=== PATIENT | male | born 1950 | race Caucasian/White ===

== ENCOUNTER 2017-04-03 09:42 | Emergency (ER) | payer MEDICARE, BC ==
[2017-04-03] MEDS ORDERED: TORAdol 30 mg Injection IV ONE (10:08)
[2017-04-03] MEDS ORDERED: MORPHINE SULFATE 4 MG INJ IV ONE (10:08)
--- NOTE | 2017-04-03 10:08 | ERPHSYRPT ---
- History of Present Illness Time Seen by Provider: 04/03/17 10:04 Source: patient, family Exam Limitations: no limitations Patient Subjective Stated Complaint: here for pain with breathing, pt states like a cramping pain. started after doing yard work this week end Triage Nursing Assessment: pt walked in, resp easy, holding left side of chest, states helps to apply pressure,skin w/d chest clear Physician History: The patient is a 67-year-old male with family complaining that he began having left-sided chest pain and spasms Monday evening after mowing the yard on Monday afternoon. The pain prevents her from taking a deep breath. He says this makes him short of breath. He states the pain in his chest is a spasm that comes and goes in rapid succession. He was awake all last night due to the pain. He can only take shallow breaths because of the pain. He denies nausea or vomiting. His past medical history is significant for coronary artery disease. Irregular heartbeat. Hypertension. Anxiety. CABG. Timing/Duration: day(s) (3) Activities at Onset: none Severity of Dyspnea-Max: moderate Severity of Dyspnea-Current: moderate Possible Cause: no prior episodes, allergen exposure Modifying Factors: Improves With: nothing Associated Symptoms: chest pain/discomfort, painful breathing Allergies/Adverse Reactions: No Known Drug Allergies Allergy (Unverified 04/03/17 10:01) Hx Influenza Vaccination/Date Given: No Hx Pneumococcal Vaccination/Date Given: No Immunizations Up to Date: Yes - Review of Systems Constitutional: No Fever, No Chills Eyes: No Symptoms Ears, Nose, & Throat: No Symptoms Respiratory: Dyspnea Cardiac: Chest Pain Abdominal/Gastrointestinal: No Abdominal Pain, No Nausea, No Vomiting, No Diarrhea Genitourinary Symptoms: No Dysuria Musculoskeletal: No Back Pain, No Neck Pain Skin: No Rash Neurological: No Dizziness, No Focal Weakness, No Sensory Changes Psychological: No Symptoms Endocrine: No Symptoms Hematologic/Lymphatic: No Symptoms Immunological/Allergic: No Symptoms All Other Systems: Reviewed and Negative - Past Medical History Pertinent Past Medical History: Yes Cardiac History: Congenital Heart Disease - Past Surgical History Past Surgical History: Yes Cardiac: CABG Other Surgical History: sinus,cataract, skin ca - Social History Smoking Status: Former smoker Exposure to second hand smoke: No Drug Use: none Patient Lives Alone: No - Nursing Vital Signs Nursing Vital Signs: Initial Vital Signs Temperature 98.7 F 04/03/17 09:43 Pulse Rate 78 04/03/17 09:43 Respiratory Rate 28 H 04/03/17 09:43 Blood Pressure 160/105 04/03/17 09:43 O2 Sat by Pulse Oximetry 96 04/03/17 09:43 Pain Scale Pain Intensity 6 - Physical Exam General Appearance: mild distress Eye Exam: PERRL/EOMI Ears, Nose, Throat Exam: hearing grossly normal Neck Exam: normal inspection, supple Respiratory Exam: normal breath sounds, other (shallow breaths), No chest tenderness Cardiovascular/Chest Exam: normal heart sounds, regular rate/rhythm Abdominal/Gastrointestinal Exam: soft, No tenderness, No distention, No mass Rectal Exam: not done Extremity Exam: non-tender, normal range of motion, normal inspection, no calf tenderness, no pedal edema Neurologic Exam: alert, oriented x 3, cooperative, trauma doctor II-XII nml as tested, sensation nml, No motor deficits Skin Exam: normal color, warm, No dry SpO2 Interpretation: normal SpO2: 96 Oxygen Delivery: Room Air - Course EKG Interpreted by Me: RATE, Sinus Rhythm, NORMAL ST-T - Radiology Exams Chest X-ray Interpretation: Infiltrates (new left base infiltrate per Dr Huang) - CT Exams Chest CT Interpretation: Other (tiny nonoccluding PEs in RML and RLL. Lingular and LLL consolidating airspace disease per Dr Kaur.) Ordered Tests: Active Orders 24 hr Category Date Time Status EKG-ER Only STAT Care 04/03/17 10:08 Active IV Insertion STAT Care 04/03/17 10:08 Active CHEST 2 VIEWS (PA AND LAT) Stat Exams 04/03/17 10:08 Completed CHEST WITH CONTRAST [CT] Stat Exams 04/03/17 10:55 Completed CBC W DIFF Stat Lab 04/03/17 10:16 Completed CMP Stat Lab 04/03/17 10:16 Completed D-DIMER QUANTITATION Stat Lab 04/03/17 10:16 Completed NT PRO BNP Stat Lab 04/03/17 10:16 Completed TROPONIN Q3H Lab 04/03/17 10:16 Completed TROPONIN Q3H Lab 04/03/17 13:15 Ordered TROPONIN Q3H Lab 04/03/17 16:15 Ordered TROPONIN Q3H Lab 04/03/17 19:15 Ordered TROPONIN Q3H Lab 04/03/17 22:15 Ordered Medication Summary Generic Name Dose Route Start Last Admin Trade Name Enedina PRN Reason Stop Dose Admin Ceftriaxone Sodium/Dextrose 1 g in 50 mls @ 100 mls/hr 04/03/17 12:20 12:27 Rocephin 1 Gm-D5w 50 Ml Bag IV 04/03/17 12:49 100 mls/hr STAT STA Administration Discontinued Medications Generic Name Dose Route Start Last Admin Trade Name Enedina PRN Reason Stop Dose Admin Diazepam 5 mg 04/03/17 10:10 04/03/17 10:23 Valium 10 Mg/2 Ml Syringe IV 04/03/17 10:11 5 mg STAT ONE Administration Diazepam Confirm 04/03/17 10:20 Valium 10 Mg/2 Ml Syringe Administered 04/03/17 10:21 Dose 10 mg .ROUTE .STK-MED ONE Ceftriaxone Sodium/Dextrose Confirm 04/03/17 12:26 Rocephin 1 Gm-D5w 50 Ml Bag Administered 04/03/17 12:27 Dose 1 g in 50 mls @ ud IV .STK-MED ONE Ketorolac Tromethamine 30 mg 04/03/17 10:08 04/03/17 10:23 Toradol 30 Mg Injection IV 04/03/17 10:09 30 mg STAT ONE Administration Ketorolac Tromethamine Confirm 04/03/17 10:20 Toradol 30 Mg Injection Administered 04/03/17 10:21 Dose 30 mg .ROUTE .STK-MED ONE Morphine Sulfate 4 mg 04/03/17 10:08 04/03/17 10:23 Morphine Sulfate 4 Mg Inj IV 04/03/17 10:09 4 mg STAT ONE Administration Morphine Sulfate Confirm 04/03/17 10:20 Morphine Sulfate 4 Mg Inj Administered 04/03/17 10:21 Dose 4 mg .ROUTE .STK-MED ONE Lab/Rad Data: Laboratory Result Diagrams 04/03/17 10:16 04/03/17 10:16 Laboratory Results 04/03/17 04/03/17 04/03/17 Range/Units 10:16 10:16 10:16 WBC (4.0-10.5) K/mm3 RBC (4.1-5.6) M/mm3 Hgb (12.5-18.0) gm/dl Hct (42-50) % MCV (78-100) fl MCH (26-32) pg MCHC (32-36) g/dl RDW (11.5-14.0) % Plt Count (150-450) K/mm3 MPV (6-9.5) fl Gran % (36.0-66.0) % Lymphocytes % (24.0-44.0) % Monocytes % (0.0-12.0) % Eosinophils % (0.00-5.0) % Basophils % (0.0-0.4) % Basophils # (0-0.4) D-Dimer 1028 H* (0-500) ng/mL Sodium (136-145) mEq/L Potassium (3.5-5.1) mEq/L Chloride (98-107) mEq/L Carbon Dioxide (21-32) mEq/L Anion Gap (5-15) MEQ/L BUN (9-20) mg/dL Creatinine (0.55-1.30) mg/dl Estimated GFR ML/MIN Glucose (70-110) MG/DL Calcium (8.5-10.1) mg/dL Total Bilirubin (0.2-1.0) mg/dL AST (15-37) U/L ALT (12-78) U/L Alkaline Phosphatase (46-116) U/L Troponin I < 0.017 (0.000-0.056) ng/ml NT-Pro-B Natriuret Pep 624 H (0-125) pg/ml Serum Total Protein (6.4-8.2) gm/dL Albumin (3.4-5.0) g/dL 04/03/17 04/03/17 Range/Units 10:16 10:16 WBC 14.3 H (4.0-10.5) K/mm3 RBC 4.71 (4.1-5.6) M/mm3 Hgb 14.7 (12.5-18.0) gm/dl Hct 43.1 (42-50) % MCV 91.5 (78-100) fl MCH 31.2 (26-32) pg MCHC 34.1 (32-36) g/dl RDW 12.9 (11.5-14.0) % Plt Count 220 (150-450) K/mm3 MPV 10.3 H (6-9.5) fl Gran % 78.5 H (36.0-66.0) % Lymphocytes % 10.9 L (24.0-44.0) % Monocytes % 10.2 (0.0-12.0) % Eosinophils % 0.2 (0.00-5.0) % Basophils % 0.2 (0.0-0.4) % Basophils # 0.03 (0-0.4) D-Dimer (0-500) ng/mL Sodium 137 (136-145) mEq/L Potassium 4.5 (3.5-5.1) mEq/L Chloride 102 (98-107) mEq/L Carbon Dioxide 24.3 (21-32) mEq/L Anion Gap 14.7 (5-15) MEQ/L BUN 20 (9-20) mg/dL Creatinine 1.07 (0.55-1.30) mg/dl Estimated GFR > 60 ML/MIN Glucose 115 H (70-110) MG/DL Calcium 9.1 (8.5-10.1) mg/dL Total Bilirubin 1.20 H (0.2-1.0) mg/dL AST 13 L (15-37) U/L ALT 25 (12-78) U/L Alkaline Phosphatase 64 (46-116) U/L Troponin I (0.000-0.056) ng/ml NT-Pro-B Natriuret Pep (0-125) pg/ml Serum Total Protein 7.3 (6.4-8.2) gm/dL Albumin 4.0 (3.4-5.0) g/dL - Progress Progress: improved Air Movement: good Blood Culture(s) Obtained: No Antibiotics given: Yes Counseled pt/family regarding: lab results, diagnosis, need for follow-up, rad results - Departure Time of Disposition: 13:05 Departure Disposition: Home Clinical Impression: Pneumonia, Pulmonary emboli Condition: Stable Critical Care Time: No Referrals: LEONARDO KINNEY PA [Primary Care Provider] - Additional Instructions: You have pneumonia on your left side. You also have tiny blood clots that are non-occluding in your right lung. You were given Toradol 30 mg, rocephin 1 gm, and Valium 5 mg 2 times by IV and Lovenox 95 units to in the ER. Stop taking the augmentin. Take azithromycin 500 mg today and 250 mg every day for days 2 through 5. Take Flexeril 5 mg every 8 hours as needed. Follow up tomorrow with your local physician in the morning. Prescriptions: Cyclobenzaprine HCl [Flexeril] 5 mg PO Q8H PRN PRN #10 tablet PRN Reason: Pain Azithromycin 250 mg [Zithromax 250 MG TABLET] 250 mg PO ZPACK #6 tablet
[2017-04-03] MEDS ORDERED: VALIUM 10 MG/2 ML SYRINGE IV ONE ×2 (10:10→13:04)
[2017-04-03 10:18] LABS: BASOPHIL % 0.2 % (0.0-0.4); Eosinophil % 0.2 % (0.00-5.0); Granulocytes % 78.5 % (36.0-66.0); Lymphocytes % 10.9 % (24.0-44.0); Mean Cell Volume 91.5 fl (78-100); Mean Corpuscular Hemoglobin 31.2 pg (26-32); Mean Platelet Volume 10.3 fl (6-9.5); Monocytes % 10.2 % (0.0-12.0); Platelet Count 220 K/mm3 (150-450); Red Blood Count 4.71 M/mm3 (4.1-5.6); Red Cell Distribution Width 12.9 % (11.5-14.0); White Blood Count 14.3 K/mm3 (4.0-10.5)
[2017-04-03] MEDS ORDERED: TORAdol 30 mg Injection ONE (10:20)
[2017-04-03] MEDS ORDERED: MORPHINE SULFATE 4 MG INJ ONE (10:20)
[2017-04-03] MEDS ORDERED: VALIUM 10 MG/2 ML SYRINGE ONE ×2 (10:20→13:12)
[2017-04-03 10:51] LABS: ALKALINE PHOSPHATASE 64 U/L (46-116); ANION GAP 14.7 MEQ/L (5-15); BLOOD UREA NITROGEN 20 mg/dL (9-20); CHLORIDE 102 mEq/L (98-107); Carbon Dioxide 24.3 mEq/L (21-32); Glucose 115 MG/DL (70-110); Potassium 4.5 mEq/L (3.5-5.1); SGOT/AST 13 U/L (15-37); SGPT/ALT 25 U/L (12-78); SODIUM 137 mEq/L (136-145); Total Protein 7.3 gm/dL (6.4-8.2)
--- NOTE | 2017-04-03 11:33 | XRAY ---
Indication: Short of breath and chest pain. Comparison: March 13, 2009. PA/lateral chest demonstrates new left lung base infiltrate/atelectasis/effusion. Right lung clear. Heart is borderline enlarged again demonstrating previous cardiac valvular replacement surgery. Bony thorax intact. Impression: New left base infiltrate/atelectasis/effusion.
[2017-04-03] MEDS ORDERED: ROCEPHIN 1 Gm-D5w 50 ml Bag** 1 G/50 ML IVPB IV STA (12:20)
[2017-04-03] MEDS ORDERED: ROCEPHIN 1 Gm-D5w 50 ml Bag** 1 G/50 ML IVPB IV ONE (12:26)
--- NOTE | 2017-04-03 12:44 | XRAY ---
Indication: Short of breath. Elevated d-dimer. Multiple contiguous axial images obtained through the chest using 80 cc Isovue 370 contrast and PE protocol. Comparison: None There is good opacification of the pulmonary arteries. Tiny nonoccluding pulmonary emboli seen at the bifurcation of the right middle and right lower lobe further extending into the right middle lobe medial/lateral segmental and right lower lobe anterior/lateral segmental branches. Heart is not enlarged. Previous mitral valve replacement surgery. Aorta minimally arteriosclerotic without aneurysm/dissection. Tiny left hilar calcified nodes. No pathologic mediastinal/hilar lymphadenopathy. Examination of lung parenchyma demonstrates left lower lobe consolidating airspace disease with tiny effusion. Lesser degree seen in the lingula. Minimal right lung dependent atelectasis, left lower lobe calcified granuloma, and minimal bilateral upper lobe pulmonary emphysema. Bony thorax intact with mild degenerative changes throughout the spine. Limited upper abdomen demonstrates 12.5 cm splenomegaly. Impression: 1. Tiny nonoccluding right middle and right lower lobe pulmonary emboli. No distal infarct. 2. Lingular and left lower lobe consolidating airspace disease with tiny effusion. 3. Minimal pulmonary emphysema and evidence for old granulomatous disease. 4. Splenomegaly. CT DI 19.91
[2017-04-03 13:04] VITALS: O2SAT 96
[2017-04-03] MEDS ORDERED: ENOXAPARIN SODIUM SQ STA (13:05)
[2017-04-03 13:10] VITALS: BP 121/87; PULSE 65
[2017-04-03] MEDS ORDERED: ENOXAPARIN SODIUM SQ ONE (13:12)
== END 2017-04-03 13:55 | disposition home or self-care (01) ==
LOC: ED 09:42
DX: J18.9 Pneumonia, unspecified organism (principal); I26.99 Other pulmonary embolism without acute cor pulmonale; R07.89 Other chest pain; I25.10 Atherosclerotic heart disease of native coronary artery without angina pectoris; I10 Essential (primary) hypertension; F41.9 Anxiety disorder, unspecified; Z98.61 Coronary angioplasty status
CPT/HCPCS: 36000; 36415; 71020; 71260; 80053; 83880; 84484; 85025; 85379; 93005; 93041; 96365; 96372; 96374; 96375; 96376; 99284; J0696; J1650; J1885; J2270; J3360